=== PATIENT | female | born 1945 | race Two or more races ===

== ENCOUNTER 2017-02-10 21:09 | Observation (INO) | payer MEDICARE ==
[~2017-02-10] VITALS: Ht 157.5 cm; Wt 73.7 kg
[2017-02-10 20:00] VITALS: BP 141/82; PULSE 101; RESP 16; TEMP 95.5; O2SAT 94
[~2017-02-10 21:09] MED LIST: HEPARIN SODIUM - SQ 10,000 UNITS/ML VIAL SQ SCH; RESP: ALBUTEROL 2.5 MG/3 ML NEB (PRN) INH; SODIUM CHLORIDE 0.9% FLUSH 10 ML FLUSH IV FLUSH PRN
[2017-02-10] MEDS: RESP: ALBUTEROL 2.5 MG/IPRATROPIUM 0.5 MG NEB (SCH) INH (23:48)
[2017-02-10 23:52] VITALS: O2SAT 96
[2017-02-11] VITALS: BP 136/89; PULSE 101; RESP 16; TEMP 96.6; O2SAT 96
[2017-02-11] MEDS: methylPREDNISolone SOD SUCC 125 MG/2 ML VIAL IVP SCH ×3 (00:12→09:41)
[2017-02-11] MEDS: SODIUM CHLORIDE 0.9% FLUSH 10 ML FLUSH IV FLUSH SCH ×2 (00:12→09:41)
[2017-02-11] MEDS: RESP: ALBUTEROL 2.5 MG/IPRATROPIUM 0.5 MG NEB (SCH) INH ×2 (03:34→10:02)
[2017-02-11 08:00] VITALS: BP 151/79; PULSE 67; RESP 16; TEMP 97.5; O2SAT 96
[2017-02-11 08:09] LABS: BASOPHIL # 0.1 TH/MM3 (0-0.2); BASOPHIL % 1.7 % (0.0-2.0); EOSINOPHIL % 0.1 % (0.0-4.0); HEMO FLAGS DIFF FINAL; LYMPH % 11.5 % (9.0-44.0); LYMPHOCYTE # 0.8 TH/MM3 (1.0-4.8); MEAN CELL VOLUME 91.8 FL (80.0-100.0); MEAN CORPUSCULAR HEMOGLOBIN 30.7 PG (27.0-34.0); MEAN CORPUSCULAR HGB CONC 33.4 % (32.0-36.0); MONO % 2.3 % (0.0-8.0); NEUT % 84.4 % (16.0-70.0); PLATELET COUNT 217 TH/MM3 (150-450); RED BLOOD COUNT 4.25 MIL/MM3 (4.00-5.30); RED CELL DISTRIBUTION WIDTH 12.9 % (11.6-17.2); WHITE BLOOD COUNT 7.1 TH/MM3 (4.0-11.0)
[2017-02-11 08:16] LABS: POTASSIUM 4.3 MEQ/L (3.5-5.1)
[2017-02-11 08:20] LABS: BICARBONATE 23.5 MEQ/L (21.0-32.0)
--- NOTE | 2017-02-11 08:39 | HHI.HP ---
HPI Service [facility] Primary Care Physician Unknown Admission Diagnosis Asthma exacerbation with bronchitis Chief Complaint: Dyspnea, cough, wheezing Travel History International Travel<30 Days: No Contact w/Intl Traveler <30 Da: No History of Present Illness 69-year-old female with pulmonary fibrosis and underlying asthma who was recently treated with steroids and azithromycin as an outpatient for asthmatic bronchitis presented to [facility] for continued shortness of breath with cough and minimal phlegm production. She denies hemoptysis or hematemesis. She was noted to be mildly hypoxic with exertional O2 saturation down to 88% in the ER so she was placed in observation status. Patient reports she is doing much better this morning. She denies any significant sputum production since her wheezing has improved. She says she actually got up this morning without any supplemental oxygen to shower which she would've not been able to do yesterday. She desires discharge home even if it means she has to wear supplemental oxygen for short period home. She no longer smokes, but has a long history of tobacco use. Review of Systems Constitutional: DENIES: Diaphoretic episodes, Fatigue, Fever, Weight gain, Weight loss, Chills, Dizziness, Change in appetite, Night Sweats Endocrine: DENIES: Abnorml menstrual pattern, Heat/cold intolerance, Polydipsia , Polyuria, Polyphagia Eyes: DENIES: Blurred vision, Diplopia, Eye inflammation, Eye pain, Vision loss , Photosensitivity, Double Vision Ears, nose, mouth, throat: DENIES: Tinnitus, Hearing loss, Vertigo, Nasal discharge, Oral lesions, Throat pain, Hoarseness, Ear Pain, Running Nose, Epistaxis, Sinus Pain, Toothache, Odynophagia Respiratory: COMPLAINS OF: Cough, Wheezing, Sputum production, Shortness of breath, DENIES: Apneas, Snoring, Hemoptysis Cardiovascular: DENIES: Chest pain, Palpitations, Syncope, Dyspnea on Exertion , PND, Lower Extremity Edema, Orthopnea, Claudication Musculoskeletal: COMPLAINS OF: Joint pain Integumentary: DENIES: Abnormal pigmentation, Pruritus, Rash, Nail changes, Breast masses, Breast skin changes, Nipple discharge Hematologic/lymphatic: DENIES: Bruising, Lymphadenopathy Immunologic/allergic: DENIES: Eczema, Urticaria Neurologic: DENIES: Abnormal gait, Headache, Localized weakness, Paresthesias, Seizures, Speech Problems, Tremor, Poor Balance Psychiatric: DENIES: Anxiety, Confusion, Mood changes, Depression, Hallucinations, Agitation, Suicidal Ideation, Homicidal Ideation, Delusions, History of Bipolar, History of Schizophrenia Past Family Social History Past Medical History Anxiety Asthma with recent bronchitis A prescription of the aorta Carotid artery stenosis Cervical spine degenerative disc disease with history of cord compression Cervical radiculopathy Noncompliance with medical treatment Obstructive sleep apnea Paroxysmal atrial fibrillation Primary fibrosis Recurrent major depression Vitamin D deficiency Past Surgical History History of present breast biopsy Complete colonoscopy done in 2006 History of cervical epidural spinal injection Ovarian cystectomy Right-sided total hip replacement 2012 Tubal ligation Cervical discectomy and related procedures at several levels in May 2016 Reported Medications She has been prescribed multiple medications in the past but is only taking a few since her spinal surgery namely: Colace 100 mg twice a day as needed for constipation Eliquis 5 mg twice a day Ventolin inhaler or nebulizer as needed Recently started on short course of prednisone and Z-Kris last week Allergies: Coded Allergies: No Known Allergies (Unverified , 02/10/17) Family History nc Social History Lives with her of 54 years She is retired from the school cafeteria Originally from [place], she was raised in [place] and moved here 22 years ago Has 3 adult children and 9 Grandkids No tobacco since 2010 but prior to that smoked a pack per day for over 40 years Rarely uses any alcohol, denies illicit drug use Physical Exam Vital Signs Vital Signs Date Time Temp Pulse Resp B/P (MAP) Pulse Ox O2 Delivery O2 Flow Rate FiO2 02/11/17 00:00 96.6 101 16 136/89 (105) 96 02/10/17 23:52 96 Nasal Cannula 4.00 02/10/17 20:00 95.5 101 16 141/82 (101) 94 Physical Exam GENERAL: This is a well-nourished, well-developed patient, in no apparent distress. Pleasant and cooperative. SKIN: No rashes, ecchymoses or lesions. Cool and dry. HEAD: Atraumatic. Normocephalic. No temporal or scalp tenderness. EYES: Pupils equal round and reactive. Extraocular motions intact. No scleral icterus. No injection or drainage. ENT: Nose without bleeding, purulent drainage or septal hematoma. Airway patent. NECK: Trachea midline. No JVD or lymphadenopathy. Supple, nontender, no meningeal signs. CARDIOVASCULAR: Regular rate and rhythm without murmurs, gallops, or rubs. RESPIRATORY: Few expiratory wheezes bilaterally. Breath sounds equal bilaterally. Overall fair air movement. GASTROINTESTINAL: Abdomen soft, non-tender, nondistended. No hepato-splenomegaly , or palpable masses. No guarding. MUSCULOSKELETAL: Extremities without clubbing, cyanosis, or edema. No joint tenderness, effusion, or edema noted. No calf tenderness. NEUROLOGICAL: Awake and alert. Cranial nerves II through XII intact. Motor and sensory grossly within normal limits. Five out of 5 muscle strength in all muscle groups. Normal speech. Laboratory Laboratory Tests Test 02/11/17 07:55 White Blood Count 7.1 Red Blood Count 4.25 Hemoglobin 13.0 Hematocrit 39.0 Mean Corpuscular Volume 91.8 Mean Corpuscular Hemoglobin 30.7 Mean Corpuscular Hemoglobin Concent 33.4 Red Cell Distribution Width 12.9 Platelet Count 217 Mean Platelet Volume 8.2 Neutrophils (%) (Auto) 84.4 Lymphocytes (%) (Auto) 11.5 Monocytes (%) (Auto) 2.3 Eosinophils (%) (Auto) 0.1 Basophils (%) (Auto) 1.7 Neutrophils # (Auto) 6.0 Lymphocytes # (Auto) 0.8 Monocytes # (Auto) 0.2 Eosinophils # (Auto) 0.0 Basophils # (Auto) 0.1 CBC Comment DIFF FINAL Differential Comment Blood Urea Nitrogen 22 Creatinine 1.20 Random Glucose 159 Calcium Level 8.9 Sodium Level 140 Potassium Level 4.3 Chloride Level 106 Carbon Dioxide Level 23.5 Anion Gap 11 Estimat Glomerular Filtration Rate 44 Result Diagram: 02/11/17 0755 02/11/17 0755 Caprini VTE Risk Assessment Caprini VTE Risk Assessment: Mod/High Risk (score >= 2) Caprini Risk Assessment Model Point Value = 1 Point Value = 2 Point Value = 3 Point Value = 5 Age 41-60 Minor surgery BMI > 25 kg/m2 Swollen legs Varicose veins or History of unexplained or recurrent spontaneous Oral contraceptives or hormone replacement Sepsis (< 1 month) Serious lung disease, including pneumonia (< 1 month) Abnormal pulmonary function Acute myocardial infarction Congestive heart failure (< 1 month) History of inflammatory bowel disease Medical patient at bed rest Age 61-74 Arthroscopic surgery Major open surgery (> 45 min) Laparoscopic surgery (> 45 min) Malignancy Confined to bed (> 72 hours) Immobilizing plaster cast Central venous access Age >= 75 History of VTE Family history of VTE Factor V Leiden Prothrombin [id number] Lupus anticoagulant Anticardiolipin antibodies Elevated serum homocysteine Heparin-induced thrombocytopenia Other congenital or acquired thrombophilia Stroke (< 1 month) Elective arthroplasty Hip, pelvis, or leg fracture Acute spinal cord injury (< 1 month) Prophylaxis Regimen Total Risk Factor Score Risk Level Prophylaxis Regimen 0-1 Low Early ambulation 2 Moderate Order ONE of the following: *Sequential Compression Device (SCD) *Heparin 5000 units SQ BID 3-4 Higher Order ONE of the following medications: *Heparin 5000 units SQ TID *Enoxaparin/Lovenox 40 mg SQ daily (WT < 150 kg, CrCl > 30 mL/min) *Enoxaparin/Lovenox 30 mg SQ daily (WT < 150 kg, CrCl > 10-29 mL/min) *Enoxaparin/Lovenox 30 mg SQ BID (WT < 150 kg, CrCl > 30 mL/min) AND/OR *Sequential Compression Device (SCD) 5 or more Highest Order ONE of the following medications: *Heparin 5000 units SQ TID (Preferred with Epidurals) *Enoxaparin/Lovenox 40 mg SQ daily (WT < 150 kg, CrCl > 30 mL/min) *Enoxaparin/Lovenox 30 mg SQ daily (WT < 150 kg, CrCl > 10-29 mL/min) *Enoxaparin/Lovenox 30 mg SQ BID (WT < 150 kg, CrCl > 30 mL/min) AND *Sequential Compression Device (SCD) Assessment and Plan Problem List: (1) Asthmatic bronchitis with exacerbation ICD Codes: J45.901 - Unspecified asthma with (acute) exacerbation Plan: Seems to be doing relatively well. She has been on various nebulizers and inhalers in the past but has not been taking them regularly. We'll continue steroids and antibiotics. We'll check room air walking test to determine if she qualifies for home oxygen. Home oxygen will be arranged if appropriate. [place] discharge home later today. (2) Pulmonary fibrosis ICD Codes: J84.10 - Pulmonary fibrosis, unspecified Plan: Continue outpatient care. (3) Paroxysmal atrial fibrillation ICD Codes: I48.0 - Paroxysmal atrial fibrillation Plan: Continue Eliquis. Rate appears controlled. Encouraged her to follow with her primary care physician regularly to discuss other medication she has discontinued. Code Status Full Discussed Condition With Patient Tom Gil MD PhD Feb 11, 2017 08:39
[2017-02-11] MEDS ORDERED: PRED20 PO (08:44)
[2017-02-11] MEDS ORDERED: DOXY100C PO (08:44)
[2017-02-11] MEDS ORDERED: IPRASOL INH (08:44)
[2017-02-11] MEDS ORDERED: APIX5TAB PO (08:44)
[2017-02-11] MEDS ORDERED: predniSONE 20 MG TAB PO SCH (09:00)
[2017-02-11] MEDS ORDERED: APIXABAN 5 MG TABLET PO SCH (09:00)
[2017-02-11] MEDS ORDERED: DOXYCYCLINE HYCLATE 100 MG CAP PO SCH (09:00)
[2017-02-11 10:03] VITALS: O2SAT 94
== END 2017-02-11 14:24 | disposition home or self-care (01) ==
LOC: PHEDDLT 21:09 → PH5A 21:10
PROVIDERS: ADMIT Family Medicine; ATTEND Family Medicine
DX: J45.901 Unspecified asthma with (acute) exacerbation (principal); J84.10 Pulmonary fibrosis, unspecified; I48.0 Paroxysmal atrial fibrillation; F33.9 Major depressive disorder, recurrent, unspecified; G47.33 Obstructive sleep apnea (adult) (pediatric); Z87.891 Personal history of nicotine dependence; Z91.19 Patient's noncompliance with other medical treatment and regimen; Z96.649 Presence of unspecified artificial hip joint
CPT/HCPCS: 71020; 80048; 85025; 87070; 93005; 94620; 94640; 94664; 96372; 96374; 96376; G0378; J1644; J2930; J7512; 87205; 99281